=== PATIENT | male | born 1965 | race Caucasian/White ===

== ENCOUNTER 2020-06-20 14:53 | Emergency (ER) | payer OTHER ==
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
[2020-06-20] MEDS: fentaNYL 100 MCG/2 ML SDV IVPUSH ONE (15:07)
[2020-06-20 15:18] LABS: CHLORIDE,CL 102 mEq/L (98-106); SODIUM,NA 140 mEq/L (136-145)
[2020-06-20 15:39] LABS: PTT,PARTIAL THROMBOPLSTIN TIME 23.1 SEC (23.2-32.3)
[2020-06-20] MEDS: Diphtheria,Pertussis(Acell),Tetanus Vaccine 0.5 ML Syringe IM ONE (16:27)
[2020-06-20] MEDS: Lidocaine 1% with EPINEPHrine 1:100,000 20 ML MDV INJECT ONE (16:32)
[2020-06-20] MEDS: Bacitracin/Neomycin/Polymyxin B Oint 0.9 GM U/D Packet TOP ONE (16:45)
[2020-06-20] MEDS: Acetaminophen/HYDROcodone 325-5 MG Tab PO ONE (17:04)
== END 2020-06-20 18:00 | disposition home or self-care (01) ==
LOC: CC.ED 14:53
DX: S01.111A Laceration without foreign body of right eyelid and periocular area, initial encounter (principal); S40.211A Abrasion of right shoulder, initial encounter; Z23 Encounter for immunization; Z88.0 Allergy status to penicillin; V69.9XXA Occupant (driver) (passenger) of heavy transport vehicle injured in unspecified traffic accident, initial encounter
CPT/HCPCS: 12011; 36415; 70450; 72125; 73030-RT; 80053; 82150; 85025; 85610; 85730; 90471; 90715; 96374; 99285-25; A9270-GY; J3010